=== PATIENT | female | born 1965 | race Caucasian/White ===

== ENCOUNTER 2017-03-14 23:13 | Emergency (ER) | payer BC, OTHER ==
[~2017-03-14] VITALS: Ht 175.3 cm; Wt 92.5 kg
[~2017-03-14 23:13] MED LIST: BENZ100 PO; PROP40TA3 PO
[2017-03-14 23:40] VITALS: BP 168/80; PULSE 74; RESP 18; TEMP 98.5; O2SAT 97
[2017-03-14 23:50] VITALS: BP 168/80; PULSE 74; RESP 18; TEMP 98.5; O2SAT 97
[2017-03-14] MEDS ORDERED: BACT800T5 PO (23:54)
--- NOTE | 2017-03-14 23:54 | PD ---
HPI Chief Complaint: Complaint Time Seen by Provider: 23:42 Travel History International Travel<30 days: No Contact w/Intl Traveler<30days: No Traveled to known affect area: No History of Present Illness HPI 51-year-old female complaining urinary frequency, urgency and hematuria. Patient states that the symptoms started this evening. Patient denies any headache. Patient denies any chest pain or shortness of breath. Patient denies abdominal pain. Patient denies any back pain. Patient denies any fever chills. PFSH Past Medical History Blood Disorders: No Cancer: No Cardiovascular Problems: No Endocrine: No Genitourinary: No Immune Disorder: No Musculoskeletal: No Neurologic: No Psychiatric: No Reproductive: No Migraines: Yes Past Surgical History Oral Surgery: Yes (TONSILECTOMY) Social History Alcohol Use: No Tobacco Use: Yes (1/2 PACK) Substance Use: No Allergies-Medications (Allergen,Severity, Reaction): Coded Allergies: No Known Allergies (Verified , 04/04/16) Reported Meds & Prescriptions Reported Meds & Active Scripts Active Propranolol (Propranolol HCl) 40 Mg Tab 40 Mg PO BID Reported Tessalon Perles (Benzonatate) 100 Mg Cap 100 Mg PO TID PRN Review of Systems General / Constitutional: No: Fever Eyes: No: Visual changes HENT: No: Headaches Cardiovascular: No: Chest Pain or Discomfort Respiratory: No: Shortness of Breath Gastrointestinal: No: Abdominal Pain Genitourinary: Positive: Urgency, Frequency, Hematuria, No: Dysuria Musculoskeletal: No: Pain Skin: No Rash Neurologic: No: Weakness Psychiatric: No: Depression Endocrine: No: Polydipsia Hematologic/Lymphatic: No: Easy Bruising Physical Exam Narrative GENERAL: Well-nourished, well-developed patient. SKIN: Focused skin assessment warm/dry. HEAD: Normocephalic. EYES: No scleral icterus. No injection or drainage. NECK: Supple, trachea midline. No JVD or lymphadenopathy. CARDIOVASCULAR: Regular rate and rhythm without murmurs, gallops, or rubs. RESPIRATORY: Breath sounds equal bilaterally. No accessory muscle use. GASTROINTESTINAL: Abdomen soft, non-tender, nondistended. MUSCULOSKELETAL: No cyanosis, or edema. BACK: Nontender without obvious deformity. No CVA tenderness. Neurologic exam normal. Noted Data Data Last Documented VS Vital Signs Date Time Temp Pulse Resp B/P (MAP) Pulse Ox O2 Delivery O2 Flow Rate FiO2 03/14/17 23:40 98.5 74 18 168/80 (109) 97 Orders Orders Urinalysis - C+S If Indicated (03/14/17 23:47) Sulfamet-Trimeth Ds 800-160 Mg (Bactrim (03/15/17 00:00) MDM Medical Decision Making Medical Screen Exam Complete: Yes Emergency Medical Condition: Yes Differential Diagnosis Differential diagnosis including UTI, pyelonephritis, nephrolithiasis, hematuria. Narrative Course 51-year-old female with urinary urgency, frequency and hematuria. Bactrim DS one tablet by mouth given. Diagnosis Primary Impression: Hemorrhagic cystitis Patient Instructions: General Instructions Additional Instructions: Bactrim DS as directed. Follow-up with personal physician and urologist if persistent problem. Return if worse. Med/Other Pt SpecificInfo: Prescription(s) given Scripts Sulfamethoxazole-Trimethoprim (Bactrim DS) 800-160 Mg Tab 1 TAB PO BID for Infection, #14 TAB 0 Refills Prov: Iron Robles MD 03/14/17 Disposition: 01 DISCHARGE HOME Condition: Stable Iron Robles MD Mar 14, 2017 23:54
[2017-03-15] MEDS ORDERED: SULFAMETHOXAZOLE-TRIMETHOPRIM DS 800-160 MG TAB PO ONE
[2017-03-15 00:10] LABS: BLOOD, URINE LARGE (NEG); GLUCOSE,URINE NEG (NEG); KETONE, URINE NEG (NEG); NITRITE,URINE POS (NEG)
[2017-03-15 00:17] LABS: URINE COLOR PINK (YELLW/STRAW)
[2017-03-15 00:18] LABS: BACTERIA, URINE MOD /hpf; COMMENT (UR) CULTURE INDICATED; CULTURE IF INDICATED CULTURE INDICATED; SQUAMOUS EPITHELIAL CELL URINE 0-5 /hpf (0-5)
[2017-03-15 00:24] VITALS: BP 157/90
== END 2017-03-15 00:34 | disposition home or self-care (01) ==
LOC: PHED 23:13
DX: F17.210 Nicotine dependence, cigarettes, uncomplicated (principal); N30.91 Cystitis, unspecified with hematuria; B96.20 Unspecified Escherichia coli [E. coli] as the cause of diseases classified elsewhere
CPT/HCPCS: 81001; 87077; 87086; 87186; 99283